=== PATIENT | male | born 1955 | race Caucasian/White ===

== ENCOUNTER 2024-06-12 22:56 | Emergency (ER) | payer OTHER, SELFPAY ==
[2024-06-12 22:57] VITALS: BP 144/89
[2024-06-12 23:01] VITALS: BP 163/86
[2024-06-12 23:40] VITALS: BP 151/79
--- NOTE | 2024-06-12 23:44 | ED.GENMED ---
History of Present Illness
General
Chief Complaint: Abdominal Pain
Source: patient
Exam Limitations: none
Time Seen by Provider: 06/12/24 23:12
Nursing documentation reviewed up to this point in time: agreed with
History of Present Illness
History of Present Illness:
68-year-old male with past medical history of hypertension presenting to the emergency department today with concerns of right upper quadrant abdominal pain ongoing over the past hour or so. Has had similar issues in the past that were attributed
to the gallbladder. Still does have the gallbladder no history of surgeries. No nausea vomiting chest pain shortness of breath or diarrhea.
Past History
Past History
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
Patient has exhibited threatening behavior?: No
Social History
Tobacco: Non-smoker
Personal:
Living: with family
Review of Systems
Review of Systems
Allergies reviewed?: Yes
All Other Systems: ROS reviewed and negative except as documented in HPI and ROS
Phy Exam
Physical Exam
Physical Exam:
GENERAL: Alert , in no apparent distress
EYE: pupils equal and reactive
NECK: Supple, no significant adenopathy.
ENT: o/p clr, mmm.
CARDIAC: Regular rate and rhythm .
LUNGS: Clear breath sounds bilaterally, no acute respiratory distress, no wheezes/rales/rhonchi
ABDOMEN: Right upper quadrant abdominal pain otherwise soft soft, without focal tenderness, no r/g, no cvat
NEUROLOGICAL: Alert and oriented, no focal neuro deficits
SKIN: Warm and dry, skin intact.
MUSCULOSKELETAL: No edema, well perfused.
PSYCH: Normal and appropriate interaction.
Course
Orders/Labs/Results
Orders:
Orders
06/12/24 23:30
EKG [Electrocardiogram (*1)] Urgent
Reason for Study: Abdominal Pain
EKG- Treatment ONCE
12/13/24 23:32
Add On- LAB Urgent
Tests Added?: lipase
06/12/24 23:34
Complete Blood Count/With Diff Urgent
Comprehensive Metabolic Panel Urgent
Lipase Urgent
Troponin I Urgent
06/12/24 23:42
US Abdomen Complete/Upper Urgent
Comment:
Reason For Exam: RUQ pain
06/12/24 23:55
Ketorolac [Toradol] 30 mg IV NOW STA
Abnormal Lab Results
06/12/24
23:34
WBC 12.1 H 10^3/uL
(4.8-10.8)
Abs Immat Gran (auto) 0.1 H 10^3/uL
(0-0.05)
Absolute Neuts (auto) 9.5 H 10^3/uL
(1.4-6.5)
Absolute Monos (auto) 0.7 H 10^3/uL
(0.1-0.6)
Immature Gran % 0.7 H %
(0-0.5)
Neutrophils % 78.9 H %
(42.2-75.2)
Lymphocytes % 14.1 L %
(20.5-51.1)
Glucose 113 H mg/dl
(70-99)
AST 163 H U/L
(17-59)
ALT 83 H U/L
(0-50)
06/12/24 23:34
06/12/24 23:34
Vital Signs
Initial and Last Documented VS:
Initial Vital Signs
Pulse Resp BP Pulse Ox
101 18 144/89 97
06/12/24 22:57 06/12/24 22:57 06/12/24 22:57 06/12/24 22:57
Last Documented Vital Signs
Pulse Resp BP Pulse Ox
52 20 135/72 98
06/13/24 01:00 06/13/24 01:00 06/13/24 01:00 06/13/24 01:00
MDM/Problems Addressed
MDM/Problems Addressed:
68-year-old male presenting to the emergency department with concerns of right upper quadrant abdominal pain over the past few hours. Denies associated nausea vomiting diarrhea no chest pain or shortness of breath. Feels similar to previous
gallbladder issues. Patient was given Toradol with complete resolution of symptoms. Ultrasound showing gallstones but no signs of inflammation or biliary ductal dilatation. Labs showing slight transaminitis slight white count. Patient
asymptomatic here reassessment unlikely be any surgical process at this time advised for repeated labs as an outpatient and general surgery follow-up. Return precautions given.
*Critical Care Note
Total Time (30-74mins, 75-104mins- exclusive of procedures): Not Applicable
ED Attending Note
-
Portions of this chart may have been created with voice recognition software.� Occasional wrong word or��sound alike� substitutions may have occurred due to the inherent limitations of voice recognition software.
Discharge Plan
Departure
Patient Disposition: Home (Routine Discharge)
Date of Disposition: 06/13/24
Time of Disposition: 01:07
Patient with high blood pressure during this ER visit?: No
Condition: Good
Covid-19: Not Applicable
Discharge Problem:
Cholelithiases, Transaminitis
Instructions: Gallstones (DC)
Prescriptions:
No Action
tamsulosin 0.4 MG capsule
0.4 mg PO DAILY Qty: 14 0RF
Amlodipine
5 mg PO DAILY
Losartan
100 mg PO DAILY
Prednisone
4 tab PO DAILY
Referrals:
Alexis Broderick MD [Family Provider] -
Kevin Arce MD [Active] - Follow up in 5-7 days
Activity Restrictions/Additional Instructions:
You came to the emergency department today with concerns of right upper quadrant abdominal pain. Here you had gallstones on ultrasound but no signs of acute inflammation or blockage. He did have some elevation to your liver function test. Please
follow closely to have these repeated to ensure they are improving. Please help closely with the general surgeon as needed. Return to the emergency department worsening, new or concerning symptoms.
Interventions
Interventions:
*Risk Screen - Suicide Last Done: 06/12/24 23:48
*General Assessment Last Done: 06/12/24 23:48
*Neglect/Abuse Screening Last Done: 06/12/24 23:48
ED- Fall Risk Assessment Last Done: 06/12/24 23:48
*ED COVID-19 Vaccine History Last Done: 06/12/24 23:48
DB-Sfvlrx-Srtzkxqasx Assessment Last Done: 06/12/24 23:48
Discharge Date and Time
Print Language: TAJIK
[2024-06-12 23:45] VITALS: BMI 29.5
[2024-06-13] LABS: ALT (SGPT) 83 U/L (0-50); AST (SGOT) 163 U/L (17-59); Albumin 4.3 g/dl (3.5-5.0); Alkaline Phosphatase 89 U/L (38-126); Blood Urea Nitrogen 15 mg/dl (9-20); Calcium 9.2 mg/dl (8.4-10.2); Carbon Dioxide 23 mmol/L (22-30); Chloride 104 mmol/L (98-107); Estimated Creatinine Clearance 99 ml/min; Glucose 113 mg/dl (70-99); Lipase 169 U/L (23-300); Potassium 3.5 mmol/L (3.5-5.1); Sodium 138 mmol/L (135-145); Total Bilirubin 1.2 mg/dl (0.2-1.3); Total Protein 6.6 g/dl (6.3-8.2); eGFR > 60.00
[2024-06-13 00:08] LABS: % Basophils 0.2 % (0-2); % Eosinophils 0.6 % (0-6); % Immature Granulocytes 0.7 % (0-0.5); % Lymphocytes 14.1 % (20.5-51.1); % Monocytes 5.5 % (1.7-9.3); % Neutrophils 78.9 % (42.2-75.2); Absolute Eosinophils 0.1 10^3/uL (0-0.7); Absolute Immature Granulocytes 0.1 10^3/uL (0-0.05); Absolute Lymphocytes 1.7 10^3/uL (1.2-3.4); Absolute Monocytes 0.7 10^3/uL (0.1-0.6); Absolute Neutrophils 9.5 10^3/uL (1.4-6.5); Hematocrit 44.9 % (39.0-52.0); Hemoglobin 15.3 g/dL (13.0-18.0); Mean Corp Hgb Conc. 34.1 g/dL (33.0-37.0); Mean Corpuscular Hgb 29.5 pg (27.0-31.0); Mean Corpuscular Volume 86.5 fL (80.0-94.0); Mean Platelet Volume 9.7 fL (7.4-10.4); Nucleated Red Blood Cells % 0 % (-); Platelet Count 139 10^3/uL (130-400); Red Blood Cell Count 5.19 10^6/uL (4.70-6.10); Red Cell Dist. Width 13.1 % (11.5-14.5); White Blood Cell Count 12.1 10^3/uL (4.8-10.8)
[2024-06-13 00:11] LABS: Troponin I 0.013 ng/ml
[2024-06-13 00:23] VITALS: BP 139/78
[2024-06-13] MEDS: TORADOL 30 MG IV (00:24)
[2024-06-13 01:00] VITALS: BP 135/72
== END 2024-06-13 01:37 | disposition home or self-care (01) ==
LOC: EMR 22:56
PROVIDERS: EMERGENCY PHYSICIAN Student in an Organized Health Care Education/Training Program; FAMILY PHYSICIAN Internal Medicine
DX: K80.20 Calculus of gallbladder without cholecystitis without obstruction (principal); R74.01 Elevation of levels of liver transaminase levels; I10 Essential (primary) hypertension
CPT/HCPCS: 99284; 96374; 76700; 80053; 83690; 84484; 85025; 93005

== ENCOUNTER 2025-04-18 16:28 | Emergency (ER) | payer OTHER, SELFPAY ==
[2025-04-18 16:30] VITALS: BP 129/77
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
== END 2025-04-18 18:10 | disposition home or self-care (01) ==
LOC: EMR 16:28
PROVIDERS: EMERGENCY PHYSICIAN Emergency Medicine
DX: S00.83XA Contusion of other part of head, initial encounter (principal); W21.04XA Struck by golf ball, initial encounter; I10 Essential (primary) hypertension; Z85.038 Personal history of other malignant neoplasm of large intestine
CPT/HCPCS: 99284; 70450

== ENCOUNTER → 2025-06-29 08:02 | Outpatient (REF) | payer OTHER, SELFPAY | LOC: RCS 08:02 | PROVIDERS: ATTENDING PHYSICIAN Internal Medicine Cardiovascular Disease; FAMILY PHYSICIAN Internal Medicine | DX: I10 Essential (primary) hypertension (principal) | CPT/HCPCS: 93017; 93350; Q9950 ==